=== PATIENT | female | born 1995 | race American Indian/Alaskan Native ===

== ENCOUNTER 2017-08-05 19:18 | Inpatient (IN) | payer OTHER ==
[2017-08-05 20:17] LABS: SQUAMOUS EPITHIAL 3 /hpf (0-5); URINE BACTERIA OCC (<OCC); URINE BILIRUBIN NEGATIVE (NEGATIVE); URINE BLOOD 3+ (NEGATIVE); URINE CLARITY Hazy (Clear); URINE COLOR Red (YELLOW); URINE GLUCOSE (UA) 1+ mg/dL (Normal); URINE LEUKOCYTE ESTERASE NEG Leu/uL (Negative); URINE PROTEIN 2+ mg/dL (NEGATIVE)
[2017-08-05 20:35] LABS: BASO # 0.1 K/uL (0.0-0.2); BASO % 0.7 % (0.0-2.0); EOS # 0.2 K/uL (0.0-0.7); EOS % 2.3 % (0.0-4.0); HEMOGLOBIN 9.4 g/dL (11.0-16.0); LYMPH # 3.5 K/uL (1.0-4.3); LYMPH % 34.8 % (20.0-40.0); MEAN CELL VOLUME 63.8 fL (81.0-99.0); MEAN CORPUSCULAR HEMOGLOBIN 19.6 pg (27.0-31.0); MEAN CORPUSCULAR HGB CONC 30.7 g/dL (33.0-37.0); MEAN PLATELET VOLUME 8.7 fL (7.2-11.7); MONO # 0.7 K/uL (0.0-0.8); MONO % 7.3 % (0.0-10.0); NEUT # 5.5 K/uL (1.8-7.0); NEUT % 54.9 % (50.0-75.0); RBC 4.82 Mil/uL (3.80-5.20); RED CELL DISTRIBUTION WIDTH 19.2 % (11.5-14.5); WHITE BLOOD COUNT 9.9 K/uL (4.8-10.8)
[2017-08-05 20:49] LABS: ALB/GLOB RATIO 0.9 (1.0-2.1); ALBUMIN 3.3 g/dL (3.5-5.0); ALT/SGPT 13 U/L (9-52); AST/SGOT 14 U/L (14-36); BLOOD UREA NITROGEN 10 mg/dL (7-17); CALCIUM 8.4 mg/dl (8.6-10.4); GFR AFRICAN-AMERICAN > 60; GFR NON-AFRICAN AMERICAN > 60
--- NOTE | 2017-08-05 21:15 | C.PDOC ---
History Of Present Illness 22 year old female presents to the emergency department with complaints of heavy menstrual bleeding today. Patient is concerned due to the fact that her bleeding is abnormal. MP's usually irregularly spaced. started on OCP years ago, but pt abandoned after a few weeks due to no sig response. No h/o anemia. + h/o LUPE but never had a sleep mask @ home. no sig weight gains/losses Time Seen by Provider: 08/05/17 19:55 Chief Complaint (Nursing): Abdominal Pain History Per: Patient History/Exam Limitations: no limitations Onset/Duration Of Symptoms: Hrs Current Symptoms Are (Timing): Still Present Associated Symptoms: Other (vaginal bleeding) Past Medical History Reviewed: Historical Data, Nursing Documentation, Vital Signs Vital Signs: Last Vital Signs Temp 97.3 F L 08/05/17 19:20 Pulse 89 08/05/17 19:20 Resp 16 08/05/17 19:20 BP 152/88 H 08/05/17 19:20 Pulse Ox 99 08/05/17 22:47 - Medical History PMH: HTN Surgical History: No Surg Hx Family History: States: No Known Family Hx - Social History Hx Alcohol Use: No Hx Substance Use: No - Immunization History Hx Influenza Vaccination: No Review Of Systems Except As Marked, All Systems Reviewed And Found Negative. Genitourinary: Positive for: Vaginal Bleeding Physical Exam - Physical Exam Appears: Non-toxic, No Acute Distress, Other (morbidly obese, black female) Skin: Warm, Dry Head: Atraumatic Eye(s): bilateral: Normal Inspection Oral Mucosa: Moist Neck: Normal ROM, Supple Chest: Symmetrical Cardiovascular: Rhythm Regular, No Murmur Respiratory: Normal Breath Sounds, No Rales, No Rhonchi, No Wheezing Gastrointestinal/Abdominal: Soft, No Tenderness, No Guarding, No Rebound Pelvic: Other (deferred) Extremity: Normal ROM Extremity: Bilateral: Atraumatic Pulses: Left Dorsalis Pedis: Normal, Right Dorsalis Pedis: Normal Neurological/Psych: Oriented x3 ED Course And Treatment - Laboratory Results Result Diagrams: 08/05/17 20:21 08/05/17 20:21 Lab Interpretation: Abnormal (+ microcytic anemia) Urine POC: Negative O2 Sat by Pulse Oximetry: 99 (RA) Pulse Ox Interpretation: Normal Reevaluation Time: 23:30 Reassessment Condition: Improved - Physician Consult Information Time Consulting Physician Contacted: 21:14 Physician Contacted: Nasrin Fan Outcome Of Conversation: 2099, 2329: Spoke to Dr. Benja Fan who says 10ml PID for 10 days. Will consult on pelvic mass. 2330: d/w Surgical Ari, will eval. 0 : d/w Dr. Dubon- PMD- ok to admit to Dr. Raffi Fan. 2329: d/w Dr. Raffi Fan- ok to admit. Medical Decision Making Medical Decision Making: Plan: BBK Type and Screen CT Abdomen and Pelvis w IV Contrast Beta-HCG CMP CBC Provera 10mg PO Urinalysis US Pelvis 2330: DUB: pre neg continue Provera 10 mg BID x 10 days Iron Def Anemia: Start Iron Supplements and stool softeners Pelvic Mass/Cyst 15 cm: no RINKU no weight loss Adm for eval and bx/removal Dr. 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 Severe Sleep Apnea: LUPE mask for sleep as inpt Pulm Consult Disposition Doctor Will See Patient In The: Hospital Counseled Patient/Family Regarding: Studies Performed, Diagnosis - Disposition Disposition: HOSPITALIZED Disposition Time: 23:39 Condition: GOOD Forms: [employer] (Urdu) - Clinical Impression Clinical Impression: Dysfunctional uterine bleeding, Menorrhagia with irregular cycle, Iron deficiency anemia, Pelvic mass, Sleep apnea in adult - Scribe Statement The provider has reviewed the documentation as recorded by the Scribe (Julio Gar) Provider Attestation: All medical record entries made by the Scribe were at my direction and personally dictated by me. I have reviewed the chart and agree that the record accurately reflects my personal performance of the history, physical exam, medical decision making, and the department course for this patient. I have also personally directed, reviewed, and agree with the discharge instructions and disposition.
[2017-08-05] MEDS ORDERED: Iodixanol 320 MG/ML 100 ML BOTTLE IV ONE (22:02)
--- NOTE | 2017-08-05 22:18 | US ---
EXAM: US Pelvis Complete, Transabdominal US Duplex Arterial/Venous of the Pelvis, Complete EXAM DATE/TIME: 08/05/2017 7:56 PM CLINICAL HISTORY: 22 years old, female; Signs and symptoms; Other: Vag bleed; Additional info: Irregular periods, negative urine test TECHNIQUE: Real-time transabdominal pelvic ultrasound (complete) with image documentation. Real-time duplex ultrasound scan of the arterial and venous flow of the pelvis with color Doppler flow and spectral waveform analysis. COMPARISON: There are no prior studies for comparison. FINDINGS: Uterus: Uterus is anteflexed. Uterus measures 13.7 x 7.3 x 8.8 cm. Endometrium measures approximately 3.4 cm in width. Texture is heterogeneous. Right ovary: Right ovary measures approximately 3.8 x 2.6 x 3.6 cm.There is expected blood flow on Doppler imaging Left ovary: Left ovary could not be identified. Free fluid: No free fluid. Bladder: Bladder is incompletely distended. Other findings: There is a 15.7 x 11.4 x 15 cm complex cystic mass superior to the uterus. Wall is irregular with thick septations. IMPRESSION: Enlarged uterus with thickened heterogeneous endometrium; unremarkable right ovary; nonvisualization of left ovary, large cystic complex midline mass superior to the uterus possibly the left adnexal in origin neoplasm cannot be excluded CT with oral and IV contrast suggested for further evaluation as clinically indicated
--- NOTE | 2017-08-05 22:45 | CT ---
EXAM: CT Abdomen and Pelvis With Intravenous Contrast EXAM DATE/TIME: 08/05/2017 9:36 PM CLINICAL HISTORY: 22 years old, female; Pain; Abdominal pain; Periumbilical; Additional info: 15 x 15 cm pelvic mass noted on us for vag bleed TECHNIQUE: Axial computed tomography images of the abdomen and pelvis with intravenous contrast. All CT scans at this facility use one or more dose reduction techniques, viz.: automated exposure control; ma/kV adjustment per patient size (including targeted exams where dose is matched to indication; i.e. head); or iterative reconstruction technique. Coronal and sagittal reformatted images were created and reviewed. CONTRAST: 100 mL of VISIPAQUE 320 administered intravenously. COMPARISON: US - PELVIS ULTRASOUND 2017-08-05 21:01 FINDINGS: Lung bases: Heart size is normal. There is atelectasis at the lung bases ABDOMEN: Liver: There is fatty infiltration of the liver. Liver is mildly enlarged Gallbladder and bile ducts: unremarkable Pancreas: unremarkable Spleen: unremarkable Adrenals: unremarkable Kidneys and ureters: unremarkable Stomach and bowel: Stomach is almost completely empty. Rotation is normal. There is no small bowel obstruction. Ileocecal region is unremarkable. Appendix and terminal ileum are unremarkable.There are no focal colonic abnormalities. PELVIS: Appendix: See stomach and bowel Bladder: See below. Reproductive: Uterus is enlarged. Contours are lobular suggesting fibroids. There is prominence endometrium. Neither ovary is identified. There is an 11 x 14.6 x 15 cm cystic mass superior to the uterus and bladder. There are linear calcification in the wall. ABDOMEN and PELVIS: Intraperitoneal space: There is no free air or free fluid. Bones/joints: There are no acute osseous abnormalities. There is mild L5-S1 disc bulging. Soft tissues: unremarkable Vasculature: Vascular structures are unremarkable. Lymph nodes: There is no pathologic adenopathy. IMPRESSION: 11 x 14.6 x 15 cm pelvic mass superior to the uterus and dome of the bladder etiology unclear; probable fibroid uterus with thickened endometrium; enlarged fatty liver Surgical and gynecologic consultation is advised
[2017-08-06 01:56] VITALS: RESP 20
--- NOTE | 2017-08-06 05:40 | CP.PCM.CON ---
<Denton Edgar - Last Filed: 08/06/17 17:42> History of Present Illness - History of Present Illness History of Present Illness: General Surgery Progress Note for Dr. Scott This is a 22F with a PMH of HTN and DM. She presented to the ED due to heavy vaginal menstrual bleeding. She denies any abdominal or pelvic pain associated with the vaginal bleeding. CT scan in the ED showed a large [id number] pelvic mass adjacent to a fibroid utuerus. Patient denies any fevers or chills at home. She denies any chest pain or SOB. PMH: HTN, DM PSH: Denies ALL: NKDA Social: Denies Tob, ETOH, Drugs Review of Systems - Review of Systems All systems: reviewed and no additional remarkable complaints except - Reproductive: Female Reproductive:Female: Heavy Menses Past Patient History - Past Medical History & Family History Past Medical History?: Yes - Past Social History Smoking Status: Never Smoked - CARDIAC Hx Cardiac Disorders: Yes Hx Hypertension: Yes Other/Comment: non-compliant with medication - PULMONARY Hx Respiratory Disorders: No Other/Comment: denies sleep apnea - NEUROLOGICAL Hx Neurological Disorder: No - HEENT Hx HEENT Problems: No - RENAL Hx Chronic Kidney Disease: No - ENDOCRINE/METABOLIC Hx Endocrine Disorders: Yes Hx Diabetes Mellitus Type 2: Yes Other/Comment: non-complaint to medication - HEMATOLOGICAL/ONCOLOGICAL Hx Blood Disorders: Yes Hx Anemia: Yes Hx Blood Transfusions: No - INTEGUMENTARY Hx Dermatological Problems: No - MUSCULOSKELETAL/RHEUMATOLOGICAL Hx Falls: No - GASTROINTESTINAL Hx Gastrointestinal Disorders: No - GENITOURINARY/GYNECOLOGICAL Hx Genitourinary Disorders: Yes Other/Comment: menorrhagia w/ irregular cycle, stopped control pills years ago. was also non-compliant - PSYCHIATRIC Hx Substance Use: No - SURGICAL HISTORY Hx Surgeries: No - ANESTHESIA Hx Anesthesia: No Meds Allergies/Adverse Reactions: Allergies Allergy/AdvReac Type Severity Reaction Status Date / Time No Known Allergies Allergy Verified 08/05/17 19:24 - Medications Medications: Current Medications Cefepime HCl 1 gm/ Dextrose 50 mls @ 100 mls/hr IVPB DAILY TAI PRN Reason: Protocol Pantoprazole Sodium (Protonix Ec Tab) 40 mg PO DAILY TAI Physical Exam - Constitutional Appears: Non-toxic, No Acute Distress - Head Exam Head Exam: ATRAUMATIC, NORMOCEPHALIC - Eye Exam Eye Exam: EOMI - ENT Exam ENT Exam: Mucous Membranes Moist, Normal Oropharynx - Respiratory Exam Respiratory Exam: NORMAL BREATHING PATTERN - Cardiovascular Exam Cardiovascular Exam: +S1, +S2 - GI/Abdominal Exam GI & Abdominal Exam: Soft. absent: Firm, Hernia Results - Vital Signs Recent Vital Signs: Last Vital Signs Temp 98.1 F 08/06/17 01:55 Pulse 90 08/06/17 01:55 Resp 20 08/06/17 01:55 BP 133/85 08/06/17 01:55 Pulse Ox 99 08/06/17 01:55 - Labs Result Diagrams: 08/05/17 20:21 08/05/17 20:21 Labs: Laboratory Results - last 24 hr 08/05/17 08/05/17 08/05/17 20:03 20:03 20:21 WBC 9.9 RBC 4.82 Hgb 9.4 L Hct 30.7 L MCV 63.8 L MCH 19.6 L MCHC 30.7 L RDW 19.2 H Plt Count 384 MPV 8.7 Neut % (Auto) 54.9 Lymph % (Auto) 34.8 [place] % (Auto) 7.3 Eos % (Auto) 2.3 Baso % (Auto) 0.7 Neut # (Auto) 5.5 Lymph # (Auto) 3.5 [place] # (Auto) 0.7 Eos # (Auto) 0.2 Baso # (Auto) 0.1 Differential Comment Sodium Potassium Chloride Carbon Dioxide Anion Gap BUN Creatinine Est GFR ( Amer) Est GFR (Non-Af Amer) Random Glucose Calcium Total Bilirubin AST ALT Alkaline Phosphatase Total Protein Albumin Globulin Albumin/Globulin Ratio Beta HCG, Quant Urine Color Red Urine Clarity Hazy Urine pH 6.0 Ur Specific [place] 1.021 Urine Protein 2+ H Urine Glucose (UA) 1+ Urine Ketones Negative Urine Blood 3+ H Urine Nitrate Negative Urine Bilirubin Negative Urine Urobilinogen 2.0 H Ur Leukocyte Esterase Neg Urine WBC (Auto) 1 Urine RBC (Auto) 5542 H Ur Squamous Epith Cells 3 Urine Bacteria Occ H Urine HCG, Qual Negative Blood Type Antibody Screen 08/05/17 08/05/17 20:21 20:21 WBC RBC Hgb Hct MCV MCH MCHC RDW Plt Count MPV Neut % (Auto) Lymph % (Auto) [place] % (Auto) Eos % (Auto) Baso % (Auto) Neut # (Auto) Lymph # (Auto) [place] # (Auto) Eos # (Auto) Baso # (Auto) Differential Comment Sodium 135 Potassium 3.6 Chloride 101 Carbon Dioxide 25 Anion Gap 13 BUN 10 Creatinine 0.5 L Est GFR ( Amer) > 60 Est GFR (Non-Af Amer) > 60 Random Glucose 230 H Calcium 8.4 L Total Bilirubin 0.4 AST 14 ALT 13 Alkaline Phosphatase 57 Total Protein 7.0 Albumin 3.3 L Globulin 3.6 Albumin/Globulin Ratio 0.9 L Beta HCG, Quant < 2.39 Urine Color Urine Clarity Urine pH Ur Specific [place] Urine Protein Urine Glucose (UA) Urine Ketones Urine Blood Urine Nitrate Urine Bilirubin Urine Urobilinogen Ur Leukocyte Esterase Urine WBC (Auto) Urine RBC (Auto) Ur Squamous Epith Cells Urine Bacteria Urine HCG, Qual Blood Type AB POSITIVE Antibody Screen Negative Assessment & Plan - Assessment and Plan (Free Text) Assessment: 22F presenting with menorrhagia and a pelvic mass Vital signs stable HgB 9.4 Plan: Recommend pelvic MRI Continue medical managment per primary team and OBGYN Followup Tumor Markers D/W Dr. Temo Edgar PGY2 <Marcio Plascencia - Last Filed: 08/08/17 20:04> Results - Vital Signs Recent Vital Signs: Last Vital Signs Temp 98.3 F 08/07/17 08:00 Pulse 96 H 08/07/17 08:00 Resp 20 08/07/17 08:00 BP 118/67 08/07/17 08:00 Pulse Ox 100 08/07/17 08:00 - Labs Result Diagrams: 08/07/17 06:50 08/07/17 06:50 Attending/Attestation - Attestation I have personally seen and examined this patient.: Yes I have fully participated in the care of the patient.: Yes I have reviewed all pertinent clinical information: Yes Notes (Text): Pt was seen and examined at bedside Agree with above note and assessment Pt with Lower abdominal pn Abdomen: Soft, NT, ND,Morbidly obese Labs and radiology reviewed Ass: Abdominal mass, possible ovarian cyst Plan: MRI of abdomen [employer] consult Serial abdominal exam Plan d.w pt in detail Risk and benefit explained in detail.
--- NOTE | 2017-08-06 07:56 | RAD ---
Chest x-ray single frontal view History: Admission film. Comparison: None available. Findings: No focal infiltrate or effusion. Mild right hilar prominence. Heart size within normal limits. Impression: No focal infiltrate or effusion. Mild right hilar prominence. Heart size within normal limits.
--- NOTE | 2017-08-06 10:30 | CP.PCM.CON ---
History of Present Illness - History of Present Illness History of Present Illness: I was asked to see patient by Dr Ward Fan. Patient is a 22 year old female with PMH HTN, DM who presents with uterine bleeding. She was found to have incomplete RBBB on EKG. Consult was requested. Review of Systems - Constitutional Constitutional: absent: As Per HPI, Anorexia, Chills, Daytime Sleepiness, Excessive Sweating, Fatigue, Fever, Frequent Falls, Headache, Increased Appetite , Lethargy, Malaise, Night Sweats, Snoring, Sleep Apnea, Weight Gain, Weight Loss, Weakness, Other - EENT Eyes: absent: As Per HPI, Blind Spots, Blurred Vision, Change in Vision, Decreased Night Vision, Diplopia, Discharge, Dry Eye, Exophthalmos, Floaters, Irritation, Itchy Eyes, Loss of Peripheral Vision, Pain, Photophobia, Requires Corrective Lenses, Sees Flashes, Spots in Vision, Tunnel Vision, Other Visual Disturbances, Loss of Vision, Other Ears: absent: As Per HPI, Decreased Hearing, Ear Discharge, Ear Pain, Tinnitus, Abnormal Hearing, Disequilibrium, Dizziness, Other Nose/Mouth/Throat: absent: As Per HPI, Epistaxis, Nasal Congestion, Nasal Discharge, Nasal Obstruction, Nasal Trauma, Nose Pain, Post Nasal Drip, Sinus Pain, Sinus Pressure, Bleeding Gums, Change in Voice, Dental Pain, Dry Mouth, Dysphagia, Halitosis, Hoarsness, Lip Swelling, Mouth Lesions, Mouth Pain, Odynophagia, Sore Throat, Throat Swelling, Tongue Swelling, Facial Pain, Neck Pain, Neck Mass, Other - Breasts Breasts: absent: As Per HPI, Change in Shape, Mass, Pain, Nipple Discharge, Nipple Inversion, Skin Changes, Swelling, Other - Cardiovascular Cardiovascular: absent: As Per HPI, Acrocyanosis, Chest Pain, Chest Pain at Rest , Chest Pain with Activity, Claudication, Diaphoresis, Dyspnea, Dyspnea on Exertion, Edema, Irregular Heart Rhythm, Pain Radiating to Arm/Neck/Jaw, Leg Edema, Leg Ulcers, Lightheadedness, Orthopnea, Palpitations, Paroxysmal Nocturnal Dyspnea, Pedal Edema, Radiating Pain, Rapid Heart Rate, Slow Heart Rate, Syncope, Other - Respiratory Respiratory: absent: As Per HPI, Cough, Dyspnea, Hemoptysis, Dyspnea on Exertion , Wheezing, Snoring, Stridor, Pain on Inspiration, Chest Congestion, Excessive Mucous Production, Change in Mucous Color, Pain with Coughing, Other - Gastrointestinal Gastrointestinal: absent: As Per HPI, Abdominal Pain, Belching, Bloating, Change in Bowel Habits, Change in Stool Character, Coffee Ground Emesis, Constipation, Cramping, Diarrhea, Dyspepsia, Dysphagia, Early Satiety, Excessive Flatus, Fecal Incontinence, Heartburn, Hematemesis, Hematochezia, Loose Stools, Melena, Nausea, Odynophagia, Temesmus, Vomiting, Other - Genitourinary Genitourinary: absent: As Per HPI, Change in Urinary Stream, Difficulty Urinating, Dysuria, Flank Pain, Hematuria, Pyuria, Nocturia, Urinary Incontinence, Urinary Frequency, Urinary Hesitance, Urinary Urgency, Voiding Freq/Small Amts, Freq UTI, Hx Renal/Bladder Calculi, Hx /Renal Surgery, Bladder Distension, Other - Reproductive: Female Reproductive:Female: absent: As Per HPI, Amenorrhea, Amenorrhea/ Control, Currently Menstual, Cycle <21 Days, Cycle >35 Days, Cycle Variable, Menses 1-7 Days, Menses >/= 8 Days, Menses Variable, Cycle > 4 Weeks Between, No Menses for 6 Months, Heavy Menses, Light Menses, Normal Menses, Spotting Between Cycles , S/P Hysterectomy, Menopausal, Post Menopausal, Premenarche, Abnormal Vaginal Bleeding, Dysmenorrhea, Dyspareunia, Genital Lesions, Genital Pruritis, Pelvic Pain, Prolapse Symptoms, Sexual Dysfunction, Vaginal Discharge, Vaginal Dryness , Vaginal Odor, Vaginal Pruritis, Other - Menstruation Menstruation: Abnormal Vaginal Bleeding - Musculoskeletal Musculoskeletal: absent: As Per HPI, Abnormal Gait, Arthralgias, Atrophy, Back Pain, Deformity, Joint Swelling, Limited Range of Motion, Loss of Height, Muscle Cramps, Muscle Weakness, Myalgias, Neck Pain, Numbness, Radiating Pain into Limb, Stiffness, Tingling, Other - Integumentary Integumentary: absent: As Per HPI, Acne, Alopecia, Bleeding Lesions, Change in Hair, Change in Nails, Change in Pigmentation, Changing Lesions, Dry Skin, Erythema, Furuncle, Hirsutism, Lesions, New Lesions, Non-Healing Lesions, Photosensitivity, Pruritus, Rash, Skin Pain, Skin Ulcer, Sores, Striae, Swelling , Unusual Bruising, Wounds, Jaundice, Other - Neurological Neurological: absent: As Per HPI, Abnormal Gait, Abnormal Hearing, Abnormal Movements, Abnormal Speech, Behavioral Changes, Burning Sensations, Confusion, Convulsions, Disequilibrium, Dizziness, Numbness, Focal Weakness, Frequent Falls , Headaches, Lack of Coordination, Loss of Vision, Memory Loss, Paresthesias, Radicular Pain, Restless Legs, Sensory Deficit, Syncope, Tingling, Tremor, Vertigo, Weakness, Other Visual Disturbances, Other - Psychiatric Psychiatric: absent: As Per HPI, Abnormal Sleep Pattern, Anhedonia, Anxiety, Auditory Hallucinations, Behavioral Changes, Change in Appetite, Change in Libido, Confusion, Depression, Difficulty Concentrating, Hallucinations, Homicidal Ideation, Hopelessness, Irritability, Memory Loss, Mood Swings, Panic Attacks, Paranoia, Suicidal Ideation, Visual Hallucinations, Tactile Hallucinations, Other - Endocrine Endocrine: absent: As Per HPI, Change in Body Appearance, Change in Libido, Cold Intolorance, Deepening of Voice, Excessive Sweating, Fatigue, Flushing, Heat Intolorance, Increase in Ring/Shoe/Hat Size, Palpitations, Polydipsia, Polyphagia, Polyuria, Other - Hematologic/Lymphatic Hematologic: absent: As Per HPI, Easy Bleeding, Easy Bruising, Lymphadenopathy, Other Past Patient History - Past Medical History & Family History Past Medical History?: Yes - Past Social History Smoking Status: Never Smoked - CARDIAC Hx Cardiac Disorders: Yes Hx Hypertension: Yes Other/Comment: non-compliant with medication - PULMONARY Hx Respiratory Disorders: No Other/Comment: denies sleep apnea - NEUROLOGICAL Hx Neurological Disorder: No - HEENT Hx HEENT Problems: No - RENAL Hx Chronic Kidney Disease: No - ENDOCRINE/METABOLIC Hx Endocrine Disorders: Yes Hx Diabetes Mellitus Type 2: Yes Other/Comment: non-complaint to medication - HEMATOLOGICAL/ONCOLOGICAL Hx Blood Disorders: Yes Hx Anemia: Yes Hx Blood Transfusions: No - INTEGUMENTARY Hx Dermatological Problems: No - MUSCULOSKELETAL/RHEUMATOLOGICAL Hx Falls: No - GASTROINTESTINAL Hx Gastrointestinal Disorders: No - GENITOURINARY/GYNECOLOGICAL Hx Genitourinary Disorders: Yes Other/Comment: menorrhagia w/ irregular cycle, stopped control pills years ago. was also non-compliant - PSYCHIATRIC Hx Substance Use: No - SURGICAL HISTORY Hx Surgeries: No - ANESTHESIA Hx Anesthesia: No Meds Allergies/Adverse Reactions: Allergies Allergy/AdvReac Type Severity Reaction Status Date / Time No Known Allergies Allergy Verified 08/05/17 19:24 - Medications Medications: Current Medications Cefepime HCl 1 gm/ Dextrose 50 mls @ 100 mls/hr IVPB DAILY [facility] PRN Reason: Protocol Pantoprazole Sodium (Protonix Ec Tab) 40 mg PO DAILY [facility] Physical Exam - Constitutional Appears: Non-toxic - Head Exam Head Exam: NORMAL INSPECTION - Eye Exam Eye Exam: Normal appearance - ENT Exam ENT Exam: Mucous Membranes Moist - Neck Exam Neck exam: Positive for: Full Rom - Respiratory Exam Respiratory Exam: NORMAL BREATHING PATTERN - Cardiovascular Exam Cardiovascular Exam: REGULAR RHYTHM - GI/Abdominal Exam GI & Abdominal Exam: Normal Bowel Sounds - Rectal Exam Rectal Exam: Deferred - Extremities Exam Extremities exam: Positive for: pedal edema - Back Exam Back exam: NORMAL INSPECTION - Neurological Exam Neurological exam: Alert, Oriented x3 - Psychiatric Exam Psychiatric exam: Normal Affect - Skin Skin Exam: Normal Color Results - Vital Signs Recent Vital Signs: Last Vital Signs Temp 98.3 F 08/06/17 08:00 Pulse 95 H 08/06/17 08:00 Resp 20 08/06/17 08:00 BP 142/88 08/06/17 08:00 Pulse Ox 96 08/06/17 08:00 - Labs Result Diagrams: 08/05/17 20:21 08/05/17 20:21 Labs: Laboratory Results - last 24 hr 08/05/17 08/05/17 08/05/17 20:03 20:03 20:21 WBC 9.9 RBC 4.82 Hgb 9.4 L Hct 30.7 L MCV 63.8 L MCH 19.6 L MCHC 30.7 L RDW 19.2 H Plt Count 384 MPV 8.7 Neut % (Auto) 54.9 Lymph % (Auto) 34.8 [place] % (Auto) 7.3 Eos % (Auto) 2.3 Baso % (Auto) 0.7 Neut # (Auto) 5.5 Lymph # (Auto) 3.5 [place] # (Auto) 0.7 Eos # (Auto) 0.2 Baso # (Auto) 0.1 Differential Comment Sodium Potassium Chloride Carbon Dioxide Anion Gap BUN Creatinine Est GFR ( Amer) Est GFR (Non-Af Amer) POC Glucose (mg/dL) Random Glucose Calcium Total Bilirubin AST ALT Alkaline Phosphatase Total Protein Albumin Globulin Albumin/Globulin Ratio Beta HCG, Quant Urine Color Red Urine Clarity Hazy Urine pH 6.0 Ur Specific [place] 1.021 Urine Protein 2+ H Urine Glucose (UA) 1+ Urine Ketones Negative Urine Blood 3+ H Urine Nitrate Negative Urine Bilirubin Negative Urine Urobilinogen 2.0 H Ur Leukocyte Esterase Neg Urine WBC (Auto) 1 Urine RBC (Auto) 5542 H Ur Squamous Epith Cells 3 Urine Bacteria Occ H Urine HCG, Qual Negative Blood Type Antibody Screen 08/05/17 08/05/17 08/06/17 20:21 20:21 07:50 WBC RBC Hgb Hct MCV MCH MCHC RDW Plt Count MPV Neut % (Auto) Lymph % (Auto) [place] % (Auto) Eos % (Auto) Baso % (Auto) Neut # (Auto) Lymph # (Auto) [place] # (Auto) Eos # (Auto) Baso # (Auto) Differential Comment Sodium 135 Potassium 3.6 Chloride 101 Carbon Dioxide 25 Anion Gap 13 BUN 10 Creatinine 0.5 L Est GFR ( Amer) > 60 Est GFR (Non-Af Amer) > 60 POC Glucose (mg/dL) 252 H Random Glucose 230 H Calcium 8.4 L Total Bilirubin 0.4 AST 14 ALT 13 Alkaline Phosphatase 57 Total Protein 7.0 Albumin 3.3 L Globulin 3.6 Albumin/Globulin Ratio 0.9 L Beta HCG, Quant < 2.39 Urine Color Urine Clarity Urine pH Ur Specific [place] Urine Protein Urine Glucose (UA) Urine Ketones Urine Blood Urine Nitrate Urine Bilirubin Urine Urobilinogen Ur Leukocyte Esterase Urine WBC (Auto) Urine RBC (Auto) Ur Squamous Epith Cells Urine Bacteria Urine HCG, Qual Blood Type AB POSITIVE Antibody Screen Negative - EKG Data EKG Interpreted by: Myself EKG shows normal: Sinus rhythm Assessment & Plan (1) Incomplete right bundle branch block Assessment and Plan: normal variant. no further cardiac testing needed. Status: Acute (2) HTN (hypertension) Assessment and Plan: blood pressure control Status: Acute
[2017-08-06] MEDS: Pantoprazole 40 mg EC Tab PO SCH (11:00)
[2017-08-06] MEDS ORDERED: medroxyPROGESTERone 5 MG TAB PO SCH (13:15)
[2017-08-06] MEDS: Bisoprolol-HCTZ 10-6.25 mg Tab PO SCH (13:54)
--- NOTE | 2017-08-06 15:05 | CP.PCM.HP ---
Past Patient History - Past Medical History & Family History Past Medical History?: Yes - Past Social History Smoking Status: Never Smoked - CARDIAC Hx Cardiac Disorders: Yes Hx Hypertension: Yes Other/Comment: non-compliant with medication - PULMONARY Hx Respiratory Disorders: No Other/Comment: denies sleep apnea - NEUROLOGICAL Hx Neurological Disorder: No - HEENT Hx HEENT Problems: No - RENAL Hx Chronic Kidney Disease: No - ENDOCRINE/METABOLIC Hx Endocrine Disorders: Yes Hx Diabetes Mellitus Type 2: Yes Other/Comment: non-complaint to medication - HEMATOLOGICAL/ONCOLOGICAL Hx Blood Disorders: Yes Hx Anemia: Yes Hx Blood Transfusions: No - INTEGUMENTARY Hx Dermatological Problems: No - MUSCULOSKELETAL/RHEUMATOLOGICAL Hx Falls: No - GASTROINTESTINAL Hx Gastrointestinal Disorders: No - GENITOURINARY/GYNECOLOGICAL Hx Genitourinary Disorders: Yes Other/Comment: menorrhagia w/ irregular cycle, stopped control pills years ago. was also non-compliant - PSYCHIATRIC Hx Substance Use: No - SURGICAL HISTORY Hx Surgeries: No - ANESTHESIA Hx Anesthesia: No Meds Allergies/Adverse Reactions: Allergies Allergy/AdvReac Type Severity Reaction Status Date / Time No Known Allergies Allergy Verified 08/05/17 19:24 Physical Exam - Constitutional Appears: Well - Head Exam Head Exam: ATRAUMATIC, NORMAL INSPECTION, NORMOCEPHALIC - Eye Exam Eye Exam: EOMI, Normal appearance, PERRL Pupil Exam: NORMAL ACCOMODATION, PERRL - ENT Exam ENT Exam: Mucous Membranes Moist, Normal Exam - Neck Exam Neck exam: Positive for: Normal Inspection - Respiratory Exam Respiratory Exam: Decreased Breath Sounds - Cardiovascular Exam Cardiovascular Exam: REGULAR RHYTHM, +S1, +S2 - GI/Abdominal Exam GI & Abdominal Exam: Diminished Bowel Sounds, Soft - Rectal Exam Rectal Exam: Deferred Results - Vital Signs Recent Vital Signs: Last Vital Signs Temp 98.3 F 08/06/17 08:00 Pulse 95 H 08/06/17 08:00 Resp 20 08/06/17 08:00 BP 142/88 08/06/17 08:00 Pulse Ox 96 08/06/17 08:00 - Labs Result Diagrams: 08/05/17 20:21 08/05/17 20:21 Labs: Laboratory Results - last 24 hr 08/05/17 08/05/17 08/05/17 20:03 20:03 20:21 WBC 9.9 RBC 4.82 Hgb 9.4 L Hct 30.7 L MCV 63.8 L MCH 19.6 L MCHC 30.7 L RDW 19.2 H Plt Count 384 MPV 8.7 Neut % (Auto) 54.9 Lymph % (Auto) 34.8 [place] % (Auto) 7.3 Eos % (Auto) 2.3 Baso % (Auto) 0.7 Neut # (Auto) 5.5 Lymph # (Auto) 3.5 [place] # (Auto) 0.7 Eos # (Auto) 0.2 Baso # (Auto) 0.1 Differential Comment Sodium Potassium Chloride Carbon Dioxide Anion Gap BUN Creatinine Est GFR ( Amer) Est GFR (Non-Af Amer) POC Glucose (mg/dL) Random Glucose Calcium Total Bilirubin AST ALT Alkaline Phosphatase Total Protein Albumin Globulin Albumin/Globulin Ratio Alpha Fetoprotein Carcinoembryonic Ag CA 19-9 Antigen CA 125 Antigen Beta HCG, Quant Urine Color Red Urine Clarity Hazy Urine pH 6.0 Ur Specific [place] 1.021 Urine Protein 2+ H Urine Glucose (UA) 1+ Urine Ketones Negative Urine Blood 3+ H Urine Nitrate Negative Urine Bilirubin Negative Urine Urobilinogen 2.0 H Ur Leukocyte Esterase Neg Urine WBC (Auto) 1 Urine RBC (Auto) 5542 H Ur Squamous Epith Cells 3 Urine Bacteria Occ H Urine HCG, Qual Negative Blood Type Antibody Screen 08/05/17 08/05/17 08/06/17 20:21 20:21 07:50 WBC RBC Hgb Hct MCV MCH MCHC RDW Plt Count MPV Neut % (Auto) Lymph % (Auto) [place] % (Auto) Eos % (Auto) Baso % (Auto) Neut # (Auto) Lymph # (Auto) [place] # (Auto) Eos # (Auto) Baso # (Auto) Differential Comment Sodium 135 Potassium 3.6 Chloride 101 Carbon Dioxide 25 Anion Gap 13 BUN 10 Creatinine 0.5 L Est GFR ( Amer) > 60 Est GFR (Non-Af Amer) > 60 POC Glucose (mg/dL) 252 H Random Glucose 230 H Calcium 8.4 L Total Bilirubin 0.4 AST 14 ALT 13 Alkaline Phosphatase 57 Total Protein 7.0 Albumin 3.3 L Globulin 3.6 Albumin/Globulin Ratio 0.9 L Alpha Fetoprotein Carcinoembryonic Ag CA 19-9 Antigen CA 125 Antigen Beta HCG, Quant < 2.39 Urine Color Urine Clarity Urine pH Ur Specific [place] Urine Protein Urine Glucose (UA) Urine Ketones Urine Blood Urine Nitrate Urine Bilirubin Urine Urobilinogen Ur Leukocyte Esterase Urine WBC (Auto) Urine RBC (Auto) Ur Squamous Epith Cells Urine Bacteria Urine HCG, Qual Blood Type AB POSITIVE Antibody Screen Negative 08/06/17 08/06/17 08/06/17 11:23 13:52 13:52 WBC RBC Hgb Hct MCV MCH MCHC RDW Plt Count MPV Neut % (Auto) Lymph % (Auto) [place] % (Auto) Eos % (Auto) Baso % (Auto) Neut # (Auto) Lymph # (Auto) [place] # (Auto) Eos # (Auto) Baso # (Auto) Differential Comment Sodium Potassium Chloride Carbon Dioxide Anion Gap BUN Creatinine Est GFR ( Amer) Est GFR (Non-Af Amer) POC Glucose (mg/dL) 303 H Random Glucose Calcium Total Bilirubin AST ALT Alkaline Phosphatase Total Protein Albumin Globulin Albumin/Globulin Ratio Alpha Fetoprotein 2.6 Carcinoembryonic Ag 1.6 CA 19-9 Antigen < 1.4 CA 125 Antigen 14.0 Beta HCG, Quant Urine Color Urine Clarity Urine pH Ur Specific [place] Urine Protein Urine Glucose (UA) Urine Ketones Urine Blood Urine Nitrate Urine Bilirubin Urine Urobilinogen Ur Leukocyte Esterase Urine WBC (Auto) Urine RBC (Auto) Ur Squamous Epith Cells Urine Bacteria Urine HCG, Qual Blood Type Antibody Screen
[2017-08-06] MEDS: (Novolog) Insulin Aspart, Recombinant 100 u/ml 10 ml vial SC SCH ×2 (17:29→22:30)
[2017-08-07 02:15] VITALS: O2SAT 100
[2017-08-07 06:58] LABS: HEMOGLOBIN 8.6 g/dL (11.0-16.0); MEAN CELL VOLUME 63.9 fL (81.0-99.0); MEAN CORPUSCULAR HEMOGLOBIN 19.8 pg (27.0-31.0); MEAN CORPUSCULAR HGB CONC 30.9 g/dL (33.0-37.0); MEAN PLATELET VOLUME 7.7 fL (7.2-11.7); RBC 4.38 Mil/uL (3.80-5.20); WHITE BLOOD COUNT 10.2 K/uL (4.8-10.8)
[2017-08-07 07:13] LABS: BLOOD UREA NITROGEN 8 mg/dL (7-17); CALCIUM 8.6 mg/dl (8.6-10.4); GFR AFRICAN-AMERICAN > 60; GFR NON-AFRICAN AMERICAN > 60
[2017-08-07] MEDS: (Novolog) Insulin Aspart, Recombinant 100 u/ml 10 ml vial SC SCH ×2 (08:22→12:30)
--- NOTE | 2017-08-07 08:43 | CP.PCM.PN ---
<Brandi Perrin - Last Filed: 08/07/17 08:40> Subjective - Date & Time of Evaluation Date of Evaluation: 08/07/17 Time of Evaluation: 08:40 - Subjective Subjective: Surgery: Dr. Plascencia Pt seen and examined. No acute overnight events. States she's feeling a lot better. Her abdominal pain has resolved & vaginal bleeding is also reduced. Pt is tolerating a regular diet & denies N/V, F/C. Objective - Vital Signs/Intake and Output Vital Signs (last 24 hours): Temp Pulse Resp BP Pulse Ox 98.2 F 92 H 20 133/81 100 08/07/17 00:00 08/07/17 00:00 08/07/17 00:00 08/07/17 00:00 08/07/17 00:00 Intake and Output: 08/07/17 08/07/17 06:59 18:59 Intake Total 840 Balance 840 - Medications Medications: Current Medications Amlodipine Besylate (Norvasc) 10 mg PO DAILY [facility] Last Admin: 08/06/17 13:30 Dose: 10 mg Bisoprolol Fumarate/HCTZ (Ziac 10-6.25 Mg) 1 tab PO DAILY [facility] Last Admin: 08/06/17 13:54 Dose: 1 tab Home Med (Alogliptin Benzoate [Alogliptin]) 25 mg PO DAILY [facility] Last Admin: 08/06/17 14:01 Dose: 25 mg Cefepime HCl 1 gm/ Dextrose 50 mls @ 100 mls/hr IVPB DAILY [facility] PRN Reason: Protocol Last Admin: 08/06/17 11:00 Dose: 100 mls/hr Insulin Aspart (Novolog) 0 unit SC ACHS [facility] PRN Reason: Protocol Last Admin: 08/07/17 08:22 Dose: 4 unit Loratadine (Claritin) 10 mg PO DAILY [facility] Last Admin: 08/06/17 13:30 Dose: 10 mg Medroxyprogesterone Acetate (Provera) 10 mg PO BID [facility] Last Admin: 08/06/17 17:36 Dose: 10 mg Metformin HCl (Glucophage) 1,000 mg PO BIDCC [facility] Last Admin: 08/07/17 08:22 Dose: 1,000 mg Pantoprazole Sodium (Protonix Ec Tab) 40 mg PO DAILY [facility] Last Admin: 08/06/17 11:00 Dose: 40 mg - Labs Labs: 08/07/17 06:50 08/07/17 06:50 - Constitutional Appears: Well, No Acute Distress - Head Exam Head Exam: ATRAUMATIC, NORMOCEPHALIC - Eye Exam Eye Exam: Normal appearance - ENT Exam ENT Exam: Mucous Membranes Moist - Respiratory Exam Respiratory Exam: NORMAL BREATHING PATTERN - Cardiovascular Exam Cardiovascular Exam: RRR - GI/Abdominal Exam GI & Abdominal Exam: Soft. absent: Distended, Guarding, Tenderness, Rebound - Neurological Exam Neurological Exam: Alert, Awake, Oriented x3 - Skin Skin Exam: Dry, Warm Assessment and Plan - Assessment and Plan (Free Text) Assessment: 22F with pelvic mass as seen on CT Plan: - MRI pelvis was ordered to further establish a clear origin of the pelvic mass ; pending - tumor markers negative - as per pt she was told by fender mechanic to f/u with Flatbed Press Operator/Onc for further treatment options - awaiting formal recs by gynecology - d/w Dr. Temo Perrin, PGY-3 <Marcio Plascencia B - Last Filed: 08/08/17 20:07> Objective - Vital Signs/Intake and Output Vital Signs (last 24 hours): Temp Pulse Resp BP Pulse Ox 98.3 F 96 H 20 118/67 100 08/07/17 08:00 08/07/17 08:00 08/07/17 08:00 08/07/17 08:00 08/07/17 08:00 - Labs Labs: 08/07/17 06:50 08/07/17 06:50 Attending/Attestation - Attestation I have personally seen and examined this patient.: Yes I have fully participated in the care of the patient.: Yes I have reviewed all pertinent clinical information, including history, physical exam and plan: Yes Notes (Text): Pt was seen and examined at bedside Agree with above note and assessment Pt with Ovarian cyst Out pt f/u as per IT APPLICATION ADMINISTRATOR f.u in office Plan d.w pt in detail
[2017-08-07] MEDS: Pantoprazole 40 mg EC Tab PO SCH (10:21)
[2017-08-07] MEDS: Bisoprolol-HCTZ 10-6.25 mg Tab PO SCH (10:21)
[2017-08-07 11:48] VITALS: BP 118/67; PULSE 96; TEMP 98.3
--- NOTE | 2017-08-07 13:22 | CP.PCM.DIS ---
Provider - Provider Date of Admission: 08/05/17 23:25 Attending physician: Carina Fan MD Hospital Course - Lab Results Lab Results: Most Recent Lab Values WBC 10.2 K/uL (4.8-10.8) 08/07/17 06:50 RBC 4.38 Mil/uL (3.80-5.20) 08/07/17 06:50 Hgb 8.6 g/dL (11.0-16.0) L 08/07/17 06:50 Hct 28.0 % (34.0-47.0) L 08/07/17 06:50 MCV 63.9 fL (81.0-99.0) L 08/07/17 06:50 MCH 19.8 pg (27.0-31.0) L 08/07/17 06:50 MCHC 30.9 g/dL (33.0-37.0) L 08/07/17 06:50 RDW 19.0 % (11.5-14.5) H 08/07/17 06:50 Plt Count 400 K/uL (130-400) 08/07/17 06:50 MPV 7.7 fL (7.2-11.7) 08/07/17 06:50 Neut % (Auto) 54.9 % (50.0-75.0) 08/05/17 20:21 Lymph % (Auto) 34.8 % (20.0-40.0) 08/05/17 20:21 [place] % (Auto) 7.3 % (0.0-10.0) 08/05/17 20:21 Eos % (Auto) 2.3 % (0.0-4.0) 08/05/17 20:21 Baso % (Auto) 0.7 % (0.0-2.0) 08/05/17 20:21 Neut # (Auto) 5.5 K/uL (1.8-7.0) 08/05/17 20:21 Lymph # (Auto) 3.5 K/uL (1.0-4.3) 08/05/17 20:21 [place] # (Auto) 0.7 K/uL (0.0-0.8) 08/05/17 20:21 Eos # (Auto) 0.2 K/uL (0.0-0.7) 08/05/17 20:21 Baso # (Auto) 0.1 K/uL (0.0-0.2) 08/05/17 20:21 Differential Comment 08/05/17 20:21 Sodium 137 mmol/L (132-148) 08/07/17 06:50 Potassium 4.1 mmol/L (3.6-5.2) 08/07/17 06:50 Chloride 100 mmol/L (98-107) 08/07/17 06:50 Carbon Dioxide 30 mmol/L (22-30) 08/07/17 06:50 Anion Gap 12 (10-20) 08/07/17 06:50 BUN 8 mg/dL (7-17) 08/07/17 06:50 Creatinine 0.5 mg/dL (0.7-1.2) L 08/07/17 06:50 Est GFR ( Amer) > 60 08/07/17 06:50 Est GFR (Non-Af Amer) > 60 08/07/17 06:50 POC Glucose (mg/dL) 226 mg/dL (65-110) H 08/07/17 11:23 Random Glucose 236 mg/dL (65-105) H 08/07/17 06:50 Calcium 8.6 mg/dl (8.6-10.4) 08/07/17 06:50 Total Bilirubin 0.4 mg/dL (0.2-1.3) 08/05/17 20:21 AST 14 U/L (14-36) 08/05/17 20:21 ALT 13 U/L (9-52) 08/05/17 20:21 Alkaline Phosphatase 57 U/L (38-126) 08/05/17 20:21 Total Protein 7.0 g/dL (6.3-8.3) 08/05/17 20:21 Albumin 3.3 g/dL (3.5-5.0) L 08/05/17 20:21 Globulin 3.6 gm/dL (2.2-3.9) 08/05/17 20:21 Albumin/Globulin Ratio 0.9 (1.0-2.1) L 08/05/17 20:21 Alpha Fetoprotein 2.6 ng/mL (0.0-7.5) 08/06/17 13:52 Carcinoembryonic Ag 1.6 ng/mL (0-3.0) 08/06/17 13:52 CA 19-9 Antigen < 1.4 U/mL (0-37) 08/06/17 13:52 CA 125 Antigen 14.0 U/mL (0-35) 08/06/17 13:52 Beta HCG, Quant < 2.39 mIU/ML 08/05/17 20:21 Urine Color Red (YELLOW) 08/05/17 20:03 Urine Clarity Hazy (Clear) 08/05/17 20:03 Urine pH 6.0 (5.0-8.0) 08/05/17 20:03 Ur Specific [place] 1.021 (1.003-1.030) 08/05/17 20:03 Urine Protein 2+ mg/dL (NEGATIVE) H 08/05/17 20:03 Urine Glucose (UA) 1+ mg/dL (Normal) 08/05/17 20: Urine Ketones Negative mg/dL (NEGATIVE) 08/05/17 20: Urine Blood 3+ (NEGATIVE) H 08/05/17 20:03 Urine Nitrate Negative (NEGATIVE) 08/05/17 20:03 Urine Bilirubin Negative (NEGATIVE) 08/05/17 20: Urine Urobilinogen 2.0 mg/dL (0.2-1.0) H 08/05/17 20:03 Ur Leukocyte Esterase Neg [place]/uL (Negative) 08/05/17 20:03 Urine WBC (Auto) 1 /hpf (0-5) 08/05/17 20:03 Urine RBC (Auto) 5542 /hpf (0-3) H 08/05/17 20:03 Ur Squamous Epith Cells 3 /hpf (0-5) 08/05/17 20:03 Urine Bacteria Occ (<OCC) H 08/05/17 20:03 Urine HCG, Qual Negative (NEGATIVE) 08/05/17 20:03 Blood Type AB POSITIVE 08/05/17 20: Antibody Screen Negative 08/05/17 20:21 Discharge Exam - Head Exam Head Exam: ATRAUMATIC, NORMOCEPHALIC Discharge Plan - Follow Up Plan Condition: GOOD Disposition: HOME/ ROUTINE
--- NOTE | 2017-08-09 13:43 | CARD ---
APPROVED REPORT EKG Measurement Heart [id number] <Conclusion> Normal sinus rhythm Normal ECG
--- NOTE | 2017-08-09 13:46 | CARD ---
APPROVED REPORT EKG Measurement Heart [id number] <Conclusion> Normal sinus rhythm Incomplete right bundle branch block Borderline ECG
== END 2017-08-07 14:31 | disposition home or self-care (01) | DRG 369 ==
LOC: C.ER 19:18 → C.9E 23:25 → C.3T 08-06 00:20
PROVIDERS: ADMIT Internal Medicine Nephrology; ATTEND Internal Medicine Nephrology
DX: N83.209 Unspecified ovarian cyst, unspecified side (principal); N92.1 Excessive and frequent menstruation with irregular cycle; R19.00 Intra-abdominal and pelvic swelling, mass and lump, unspecified site; I45.10 Unspecified right bundle-branch block; E11.9 Type 2 diabetes mellitus without complications; E66.01 Morbid (severe) obesity due to excess calories; Z91.14 Patient's other noncompliance with medication regimen; Z68.42 Body mass index [BMI] 45.0-49.9, adult; I10 Essential (primary) hypertension; Z79.4 Long term (current) use of insulin